=== PATIENT | male | born 1960 | race Caucasian/White ===

== ENCOUNTER 2019-04-21 07:04 | Observation (INO) | payer MEDICARE ==
[~2019-04-21] VITALS: Ht 170.2 cm; Wt 79.4 kg
--- NOTE | ~2019-04-21 | CN ---
PATIENT NAME:JOSE J TSE MEDICAL RECORD: [id number] : 62 LOCATION:. D.2137 ADMIT DATE: 04/21/19 ACCOUNT: [id number] CONSULTING PHYSICIAN: ALBARO BROWNE MD REFERRING PHYSICIAN: SHAVON GANDHI MD DATE OF CONSULTATION: 04/21/2019 CARDIOLOGY CONSULTATION DIAGNOSES: 1. Shortness of breath, dyspnea on exertion. 2. Congestive heart failure, chronic systolic dysfunction. 3. Cardiomyopathy, nonischemic. 4. Hypertension. 5. Hyperlipidemia. 6. ICD. HISTORY OF PRESENT ILLNESS: Mr. Tse presents with increasing shortness of breath, congestive heart failure symptomatology. It has been coming on for approximately 2 days. No chest pain or chest discomfort. He has a nonischemic cardiomyopathy followed by Dr. Hilario. He does have an ICD. He has had no dysrhythmias or ICD discharge. He denies any medical noncompliance. He is on Demadex 10 mg a day, Aldactone 25 mg a day, as well as Coreg, lisinopril, Lipitor. PHYSICAL EXAMINATION: CONSTITUTIONAL/GENERAL APPEARANCE: Well nourished, well developed, appears stated age. EYES: Lids and conjunctivae noninjected. No discharge. No pallor. ENT: Lips within normal limit. No cyanosis. No pallor. NECK: Carotid arteries, bilateral normal upstroke. No bruits. No thrills. No jugular venous pressure or distention. CERVICAL LYMPH NODES: Nontender. Nonenlarged. THYROID: Not enlarged. No nodules. CARDIOVASCULAR: Precordial exam, nondisplaced. No heaves or pericardial thrills. Rate and rhythm, regular. Heart sounds, normal S1, normal S2. No S3, no gallop, no rub. Systolic murmur, not heard. Diastolic murmur, not heard. RESPIRATORY: Respiratory effort, unlabored. Normal curvature. No thoracic deformity. No chest wall tenderness. Percussion, resonant. Auscultation, clear. No wheezes, no rales, no rhonchi. ABDOMEN: Soft, nondistended, nontender. No abdominal pain, no vomiting and normal appetite. MUSCULOSKELETAL: No joint tenderness, normal gait, normal tone. SKIN: Warm and dry. OVERALL IMPRESSION: Mild congestive heart failure. He has minimal pulmonary edema. This should clear with 1-2 doses of IV Lasix and he should be able to be discharged home in the a.m. TRANSINT:[id number] Voice Confirmation ID: [id number] DOCUMENT ID: [id number] CONSULT REPORT [id number] JOSE J TSE JEFFREY MD CC: [id number] DICTATION DATE: 04/21/19 1059 DEMOLITIONIST: 04/21/19 1301 ADM IN [facility] [address] [place] [address]
--- NOTE | ~2019-04-21 | EC ---
PATIENT:JOSE J FRANKS DATE OF SERVICE: 04/21/19 SEX: M MEDICAL RECORD: [id number] DATE OF : 62 LOCATION:D.M2 D.213 AGE OF PATIENT: 59 ADMISSION DATE: 04/21/19 REFERRING PHYSICIAN: INTERPRETING PHYSICIAN: ALBARO MEDINA MD ECHOCARDIOGRAM REPORT ECHO CHARGES 4 ECHO COMPLETE Date: 04/21/19 CLINICAL DIAGNOSIS: CHF ECHOCARDIOGRAPHIC MEASUREMENTS (adult normal given) AC root (d.<3.7cm) 3.2 cm LV Septum d (<1.2 cm> 1.0 cm Valve Excursion 1.2 cm LV Septum (systole) 1.1 cm Left Atria (s.<4.0cm> 3.9 cm LVPW d(<1.2cm) 0.7 cm RV (d.<2.3cm) 3.5 cm LVPW (sytole) 1.1 cm LV diastole(<5.6CM) 7.2 cm MV E-F(>70mm/sec) cm LV systole 6.5 cm LVOT Diameter 2.0 cm MV exc.(>10mm) cm Est.ejection fraction (50-75%) % DOPPLER: LVIT cm/sec A 27 cm/sec E 63 cm/sec LA cm/sec RVSP 39.0 mmHg LVOT 74 cm/sec AOP1/2T m/s Asc. Ao 127 cm/sec RVOT 51 cm/sec RA cm/sec PA 64 cm/sec AV Gradient Peak 6.4 mmHg AV Mean 3.4 mmHg AV Area 2.1 cm MV Gradient Peak 3.9 mmHg MV Mean 2.1 mmHg MV Area cm COMMENTS: Industrial Maintenance Repairer: Sundar [facility] Tire Man: 1 Dr. Medina TAPE# PACS Pericardial Effusion Y DATE OF SERVICE: ECHOCARDIOGRAM FINDINGS: 1. Left ventricular chamber size is moderately dilated. Left ventricular systolic function is moderately reduced at 30%. 2. Left atrium is within normal limits. Right atrium and right ventricular chamber sizes are moderately dilated. 3. Valvular structure have normal structure and motion. ECHOCARDIOGRAM REPORT [id number] JOSE J FRANKS 4. Doppler interrogation reveals mild mitral regurgitation, mild tricuspid regurgitation, no other valvular insufficiency or stenosis. Pulmonary systolic pressure is estimated at 39 mmHg. 5. No evidence of pericardial effusion or left ventricular thrombus. TRANSINT:[id number] Voice Confirmation ID: [id number] DOCUMENT ID: [id number] ALBARO MEDINA MD CC: [id number] DICTATION DATE: 04/22/19 1105 HAND TOUCH UP PAINTER: 04/22/19 1309 ADM IN [place] [id number] [place] [id number]
[2019-04-21] MEDS ORDERED: LIPITOR20 MG PO (07:12)
[2019-04-21] MEDS ORDERED: ASPIRIN325 MG PO (07:12)
[2019-04-21] MEDS ORDERED: KLOR-CON M2020 MEQ PO (07:13)
[2019-04-21] MEDS ORDERED: TRICOR145 MG PO (07:13)
[2019-04-21] MEDS ORDERED: COREG12.5 MG PO (07:13)
[2019-04-21] MEDS ORDERED: LISINOPRIL10 MG PO (07:13)
[2019-04-21] MEDS ORDERED: ALDACTONE25 MG PO (07:14)
[2019-04-21] MEDS ORDERED: TORSEMIDE10 MG PO (07:14)
[2019-04-21 07:42] LABS: BASOPHILS 0.1 % (0-2); EOSINOPHILS 1.4 % (0-7); HEMATOCRIT 39.5 % (42.0-54.0); HEMOGLOBIN 12.8 g/dL (13.5-17.5); IMMATURE GRANULOCYTES 0.1 % (0-5); LYMPHOCYTES 32.5 % (15-50); MCH 31.8 pg (26.0-34.0); MCHC 32.4 g/dL (31.0-37.0); MCV 98.3 fL (80.0-100.0); MEAN PLATELET VOLUME 10.7 fL (7.4-10.4); MONOCYTES 13.2 % (2-11); NEUTROPHILS 52.7 % (40-80); PLATELET COUNT 161 10x3/uL (130-400); RBC 4.02 10x6/uL (4.20-6.10); RDW 14.8 % (11.5-14.5); WBC 7.1 10x3/uL (4.8-10.8)
[2019-04-21 07:52] LABS: CALC OSMOLALITY 282 mosm/kg (275-300); CALCIUM 8.8 mg/dL (8.5-10.1); CARBON DIOXIDE 29.1 mmol/L (21.0-32.0); CHLORIDE - SERUM 104 mmol/L (98-107); CREATININE - SERUM 1.2 mg/dL (0.6-1.3); GLUCOSE 96 mg/dL (74-106); POTASSIUM - SERUM 4.5 mmol/L (3.5-5.1); SODIUM 140 mmol/L (136-145); UREA NITROGEN 24 mg/dL (7-18); eGFR NON AFRICAN AMERICAN 66 mL/min (90-120)
[2019-04-21 08:10] LABS: ALBUMIN 3.4 g/dL (3.4-5.0); ALKALINE PHOSPHATASE 36 U/L (46-116); ALT (SGPT) 47 U/L (10-68); AMYLASE - SERUM 45 U/L (25-115); CKMB 3.1 U/L (0.0-3.6); CREATINE KINASE 230 UL (21-232); LIPASE 235 U/L (73-393); PRO BNP 5687 pg/mL (0-125); PROTEIN - SERUM 6.4 g/dL (6.4-8.2); TROPONIN-I 0.019 ng/mL (0.000-0.060)
[2019-04-21 08:43] LABS: APPEARANCE CLEAR (CLEAR); BACTERIA FEW /hpf (NEGATIVE); BILIRUBIN NEGATIVE (NEGATIVE); COLOR YELLOW (YELLOW); EPITHELIAL CELLS RARE /hpf (0-5); GLUCOSE NEGATIVE (NEGATIVE); KETONE NEGATIVE (NEGATIVE); MUCUS <1+ /lpf (NONE SEEN); NITRITE NEGATIVE (NEGATIVE); PROTEIN 1+ mg/dL (NEGATIVE); RED CELLS - URINE NONE SEEN /hpf (0-5); WHITE CELLS - URINE NSEEN /hpf (NEGATIVE)
--- NOTE | 2019-04-21 12:11 | NUR ---
RECEIVED PT FROM ER. PT IS AAO AND UP AD ABHINAV. RR EVEN AND UNLABORED ON RA. L.FOR AND R.AC PIV'S ARE SALINE LOCKED. QUICKSTART, MED REQ, AND HISTORY COMPLETE. TELEMTRY APPLIED. PT DENIES ANY NEEDS AT THIS TIME. NO S/S OF DISTRESS NOTED. WILL CTM.
[2019-04-21 12:31] VITALS: BP 103/68; BMI 27.4
[2019-04-21 13:49] LABS: % SATURATION 10 % (15-55); IRON 38 ug/dl (35-150); TOTAL IRON BIND CAPACITY 368 ug/dl (260-445); UNSAT IRON BIND CAPACITY 330 ug/dl (150-375)
[2019-04-21 17:02] VITALS: BP 95/59
[2019-04-21 17:06] LABS: UDS - AMPHET NEGATIVE QUAL (NEGATIVE); UDS - BARB NEGATIVE QUAL (NEGATIVE); UDS - BENZO NEGATIVE QUAL (NEGATIVE); UDS - COCAINE NEGATIVE QUAL (NEGATIVE); UDS - OPIATE NEGATIVE QUAL (NEGATIVE); UDS - PCP NEGATIVE QUAL (NEGATIVE); UDS - THC NEGATIVE QUAL (NEGATIVE)
--- NOTE | 2019-04-21 19:48 | NUR ---
REPORT RECEIVED, WILL CONTINUE POC. PATIENT IS AAOX4, UP AD ABHINAV, SITTING ON SIDE OF BED. NO S/S OF DISTRESS OBSERVED, RR EVEN AND UNLABORED ON ROOM AIR. FRESH ICE WATER AND SHERBERT ICE CREAM GIVEN. PIVS TO LT FA AND RT AC, BOTH PATENT, SL, DRSGS C/D/I. PATIENT DENIES FURTHER NEEDS AT THIS TIME. CL IN REACH, BED LOCKED AND LOWERED. WILL CTM.
[2019-04-21 20:33] VITALS: BP 93/55
[2019-04-22 00:57] VITALS: BP 95/54
[2019-04-22 04:28] VITALS: BP 97/67
[2019-04-22 07:15] LABS: ALBUMIN 3.7 g/dL (3.4-5.0); ANION GAP 11.9 mmol/L (8-16); BILIRUBIN - TOTAL 1.17 mg/dL (0.2-1.3); CALCIUM 9.8 mg/dL (8.5-10.1); CARBON DIOXIDE 30.7 mmol/L (21.0-32.0); CREATININE - SERUM 1.2 mg/dL (0.6-1.3); POTASSIUM - SERUM 3.6 mmol/L (3.5-5.1); PROTEIN - SERUM 7.7 g/dL (6.4-8.2)
[2019-04-22 07:21] LABS: BASOPHILS 0.1 % (0-2); EOSINOPHILS 2.7 % (0-7); HEMATOCRIT 43.8 % (42.0-54.0); HEMOGLOBIN 14.4 g/dL (13.5-17.5); IMMATURE GRANULOCYTES 0.3 % (0-5); LYMPHOCYTES 26.1 % (15-50); MCH 32.1 pg (26.0-34.0); MCHC 32.9 g/dL (31.0-37.0); MCV 97.6 fL (80.0-100.0); MEAN PLATELET VOLUME 11.4 fL (7.4-10.4); MONOCYTES 13.5 % (2-11); NEUTROPHILS 57.3 % (40-80); RBC 4.49 10x6/uL (4.20-6.10); RDW 14.9 % (11.5-14.5); WBC 7.7 10x3/uL (4.8-10.8)
[2019-04-22 07:23] LABS: PLATELET COUNT 198 10x3/uL (130-400)
--- NOTE | 2019-04-22 07:40 | NUR ---
REPORT RECIEVED. PT SITTING UP IN BED. RR EVEN AND UNLABORED. NO DISTRESS NOTED. PT HAS A L FA PIV THAT IS SL AND A R AC PIV THAT IS SL. BED LOCKED AND IN LOWEST POSITION, CALL LIGHT WITHIN REACH. WILL CTM
[2019-04-22 08:56] VITALS: BP 102/69
--- NOTE | 2019-04-22 11:45 | NUR ---
GREYSON NOTIFIED ABOUT BP OF 85/46. WILL CTM
[2019-04-22 12:20] VITALS: BP 85/46
[2019-04-22 14:20] VITALS: Ht 170.2 cm; Wt 79.4 kg
--- NOTE | 2019-04-22 14:33 | NUR ---
DC PAPERWORK GONE OVER AND SIGNED WITH PT. ALL QUESTIONS ANSWERED. PIV REMOVED, CATH TIP FULLY INTACT X2. TELEMETRY REMOVED AND RETURNED TO [employer] SUPERVISOR. ALL VALUBLES REMOVED FROM ROOM. PT TAKIN VIA WHEELCHAIR TO VEHICLE.
--- NOTE | 2019-04-22 14:39 | NUR ---
I have reviewed this patient and I concur with the Shift Assessment completed by the Licensed Practical Nurse today this shift.
--- NOTE | 2019-04-24 10:09 | MORECARE ---
CASE MANAGEMENT DISCHARGE SUMMARY PATIENT: JOSE J FRANKS UNIT: [id number] ADM DATE: 04/21/19 AGE: 59 : 62 SEX: M ROOM/BED: D.2137 AUTHOR: JO ANN VELÁSQUEZ PHYSICIAN: REFERRING PHYSICIAN: SHAVON GANDHI MD DATE OF SERVICE: 04/24/19 Discharge Plan Patient Name: JOSE J FRANKS [facility] [facility] 1960 Planned Disposition: Home Anticipated Discharge Date: 04/22/19 Discharge Date: 04/22/2019 Expected LOS: 1 Initial Reviewer: [email or web address] Initial Review Date: 04/24/2019 Generated: 04/24/19 11:09 am Coverage Notice Reviewer: [email or web address] Simin Connor Notice Issued Date-Time: 04/22/2019 14:01 Notice Type: Medicare Outpatient Observation Notice Notice Delivered To: Patient Relationship to Patient: Die Cast Operator Name: Delivery Method: HAND - Hand Delivered Mirna Days: Prior Verbal Notification: Recipient Understood Notice: Recipient Signature: Med Rec Note Co-signed by Attending: Coverage Notice Comment: Patient Name: JOSE J FRANKS Page [phone] at 1009 All edits/amendments must be made on the electronic document DICTATION DATE: 04/24/19 1009 WEALTH MANAGEMENT MANAGER: GIUSEPPE 04/24/19 1009 RPT#: [id number] DC DATE:04/22/19 STATUS: DIS IN [facility] [address] [place] [address] END OF REPORT
== END 2019-04-22 14:44 | disposition home or self-care (01) ==
LOC: D.ER 07:04 → D.M2 10:49 → D.ER 10:49 → OBSVTIME 10:49 → D.M2 04-22 14:44
PROVIDERS: Family Medicine; ADMIT Internal Medicine Nephrology; ATTEND Internal Medicine Nephrology
DX: I11.0 Hypertensive heart disease with heart failure (principal); I50.23 Acute on chronic systolic (congestive) heart failure; I42.8 Other cardiomyopathies; D64.9 Anemia, unspecified; E78.5 Hyperlipidemia, unspecified; N17.9 Acute kidney failure, unspecified; I71.2 Thoracic aortic aneurysm, without rupture

== ENCOUNTER 2019-09-01 09:35 | Observation (INO) | payer MEDICARE ==
[~2019-09-01] VITALS: Ht 170.2 cm; Wt 78.2 kg
[~2019-09-01 09:35] MED LIST: ALDACTONE25 MG PO; ASPIRIN325 MG PO; COREG12.5 MG PO; KLOR-CON M2020 MEQ PO; LIPITOR20 MG PO; LISINOPRIL10 MG PO; TORSEMIDE10 MG PO; TRICOR145 MG PO
[2019-09-01] MEDS ORDERED: PRAVACHOL20 MG PO (09:50)
[2019-09-01] MEDS ORDERED: SYMBICORT 80-10.2 GM INH (09:50)
[2019-09-01 09:54] LABS: BASOPHILS 0.2 % (0-2); HEMATOCRIT 40.7 % (42.0-54.0); HEMOGLOBIN 13.2 g/dL (13.5-17.5); LYMPHOCYTES 27.2 % (15-50); MCH 31.2 pg (26.0-34.0); MCHC 32.4 g/dL (31.0-37.0); MCV 96.2 fL (80.0-100.0); MEAN PLATELET VOLUME 10.2 fL (7.4-10.4); MONOCYTES 12.1 % (2-11); NEUTROPHILS 56.5 % (40-80); RBC 4.23 10x6/uL (4.20-6.10); RDW 14.4 % (11.5-14.5); WBC 6.4 10x3/uL (4.8-10.8)
[2019-09-01 10:08] LABS: CALC OSMOLALITY 277 mosm/kg (275-300); CALCIUM 9.5 mg/dL (8.5-10.1); CARBON DIOXIDE 26.3 mmol/L (21.0-32.0); CHLORIDE - SERUM 100 mmol/L (98-107); CREATININE - SERUM 1.5 mg/dL (0.6-1.3); GLUCOSE 104 mg/dL (74-106); POTASSIUM - SERUM 4.7 mmol/L (3.5-5.1); SODIUM 135 mmol/L (136-145); UREA NITROGEN 36 mg/dL (7-18); eGFR NON AFRICAN AMERICAN 51 mL/min (90-120)
[2019-09-01 10:12] LABS: PLATELET COUNT 133 10x3/uL (130-400)
[2019-09-01 10:18] LABS: APTT 26.3 SECONDS (22.8-39.4); INR 0.98 (0.85-1.17)
[2019-09-01 10:23] LABS: ALKALINE PHOSPHATASE 39 U/L (30-120); ALT (SGPT) 27 U/L (10-68); BILIRUBIN - TOTAL 0.97 mg/dL (0.2-1.3); CKMB 2.3 U/L (0.0-3.6); CREATINE KINASE 179 UL (21-232); MAGNESIUM - SERUM 2.3 mg/dL (1.8-2.4); PROTEIN - SERUM 7.3 g/dL (6.4-8.2); TROPONIN-I < 0.017 ng/mL (0.000-0.060)
[2019-09-01 10:40] VITALS: BP 103/59
[2019-09-01 12:37] VITALS: BP 106/61; BMI 27.0
[2019-09-01 13:25] VITALS: BP 103/68; BP 103/78
[2019-09-01 13:51] VITALS: Ht 170.2 cm; Wt 78.2 kg
[2019-09-01 16:27] LABS: CKMB 2.7 U/L (0.0-3.6); CREATINE KINASE 152 UL (21-232)
[2019-09-01 16:32] LABS: TROPONIN-I < 0.017 ng/mL (0.000-0.060)
[2019-09-01 21:12] VITALS: BP 96/61
[2019-09-01 22:00] LABS: CKMB 1.8 U/L (0.0-3.6); CREATINE KINASE 140 UL (21-232); TROPONIN-I < 0.017 ng/mL (0.000-0.060)
[2019-09-01 23:58] VITALS: BP 97/55
[2019-09-02 04:29] LABS: ALBUMIN 3.9 g/dL (3.4-5.0); ALKALINE PHOSPHATASE 38 U/L (30-120); ALT (SGPT) 23 U/L (10-68); BILIRUBIN - TOTAL 0.86 mg/dL (0.2-1.3); CALC OSMOLALITY 279 mosm/kg (275-300); CALCIUM 8.8 mg/dL (8.5-10.1); CARBON DIOXIDE 26.1 mmol/L (21.0-32.0); CHLORIDE - SERUM 101 mmol/L (98-107); CKMB 1.8 U/L (0.0-3.6); CREATINE KINASE 119 UL (21-232); CREATININE - SERUM 1.3 mg/dL (0.6-1.3); GLUCOSE 97 mg/dL (74-106); MAGNESIUM - SERUM 2.3 mg/dL (1.8-2.4); PROTEIN - SERUM 7.4 g/dL (6.4-8.2); SODIUM 136 mmol/L (136-145); TROPONIN-I < 0.017 ng/mL (0.000-0.060); UREA NITROGEN 34 mg/dL (7-18); eGFR NON AFRICAN AMERICAN 60 mL/min (90-120)
[2019-09-02 04:32] LABS: BASOPHILS 0.1 % (0-2); EOSINOPHILS 4.2 % (0-7); HEMOGLOBIN 13.4 g/dL (13.5-17.5); IMMATURE GRANULOCYTES 0.1 % (0-5); LYMPHOCYTES 22.1 % (15-50); MCH 31.5 pg (26.0-34.0); MCHC 32.7 g/dL (31.0-37.0); MCV 96.5 fL (80.0-100.0); MEAN PLATELET VOLUME 10.6 fL (7.4-10.4); MONOCYTES 10.8 % (2-11); NEUTROPHILS 62.7 % (40-80); PLATELET COUNT 141 10x3/uL (130-400); RBC 4.25 10x6/uL (4.20-6.10); RDW 14.5 % (11.5-14.5); WBC 7.8 10x3/uL (4.8-10.8)
[2019-09-02 05:17] VITALS: BP 97/66
[2019-09-02 09:27] VITALS: BP 102/65
--- NOTE | 2019-09-02 11:00 | NUR ---
PT BEGGING TO BE DISCHARGED AND STATES HE IS FEELING COMPLETELY BETTER. DISCUSSED WITH CARDIOLOGY AND PT WILL STILL NEED AN ECHO AND THEN MAY DISCHARGE AND F/U IN CLINIC IN 2 WEEKS. PT VERY HAPPY TO HEAR THIS. WILL DISCUSS WITH PRIMARY AND BEGIN DISCHARGE WORKUP.
--- NOTE | 2019-09-02 13:29 | NUR ---
D/C PTS L.HAND PIV WITH CATHETER TIP FULLY INTACT. PT STATES HIS RIDE IS ALREADY HERE AND HE IS READY TO LEAVE. WAITING ON DISCHARGE PAPERS. WILL CONTINUE WITH DISCHARGE WORKUP.
--- NOTE | 2019-09-03 07:23 | MORECARE ---
CASE MANAGEMENT DISCHARGE SUMMARY PATIENT: PALMER TSE UNIT: [id number] ADM DATE: 09/01/19 AGE: 59 : 62 SEX: M ROOM/BED: D.2118 AUTHOR: JO ANN VELÁSQUEZ PHYSICIAN: REFERRING PHYSICIAN: ASYA HOUSE DO DATE OF SERVICE: 09/03/19 Discharge Plan Patient Name: PALMER TSE [facility] [facility] 1960 Planned Disposition: Anticipated Discharge Date: Discharge Date: 09/02/2019 Expected LOS: 0 Initial Reviewer: [email or web address] Initial Review Date: 09/03/2019 Generated: 09/03/19 8:23 am Coverage Notice Reviewer: [email or web address] Simin Tyler Notice Issued Date-Time: 09/01/2019 17:54 Notice Type: Medicare Outpatient Observation Notice Notice Delivered To: Patient Relationship to Patient: Self Servicer Name: Palmer Tse Delivery Method: HAND - Hand Delivered Mirna Days: Prior Verbal Notification: Recipient Understood Notice: Recipient Signature: Yes Med Rec Note Co-signed by Attending: Coverage Notice Comment: LIPSCOMB signed by patient, patient refuses his copy. Original placed on the chart. Patient Name: PALMER TSE Page [phone] at 0723 All edits/amendments must be made on the electronic document DICTATION DATE: 09/03/19722 [place] OPERATOR: GIUSEPPE 09/03/19722 RPT#: [id number] DC DATE:09/02/19 STATUS: DIS IN [facility] [address] [place] [address] END OF REPORT
== END 2019-09-02 14:19 | disposition home or self-care (01) ==
LOC: D.ER 09:35 → OBSVTIME 10:34 → D.M2 10:34
PROVIDERS: Family Medicine; ADMIT Family Medicine; ATTEND Family Medicine
DX: I11.0 Hypertensive heart disease with heart failure (principal); I50.23 Acute on chronic systolic (congestive) heart failure; I42.8 Other cardiomyopathies; D64.9 Anemia, unspecified; N17.9 Acute kidney failure, unspecified; E78.5 Hyperlipidemia, unspecified; E87.1 Hypo-osmolality and hyponatremia; I20.0 Unstable angina

== ENCOUNTER 2019-09-03 15:19 | Observation (INO) | payer MEDICARE ==
[~2019-09-03] VITALS: Ht 170.2 cm; Wt 81.8 kg
[~2019-09-03 15:19] MED LIST changes: +PRAVACHOL20 MG PO; +SYMBICORT 80-10.2 GM INH
[2019-09-03 15:37] VITALS: Ht 170.2 cm; Wt 81.8 kg
[2019-09-03 16:13] LABS: BASOPHILS 0.1 % (0-2); EOSINOPHILS 3.9 % (0-7); HEMATOCRIT 39.8 % (42.0-54.0); IMMATURE GRANULOCYTES 0.3 % (0-5); LYMPHOCYTES 20.1 % (15-50); MCH 31.6 pg (26.0-34.0); MCHC 32.7 g/dL (31.0-37.0); MCV 96.8 fL (80.0-100.0); MEAN PLATELET VOLUME 10.1 fL (7.4-10.4); MONOCYTES 12.4 % (2-11); NEUTROPHILS 63.2 % (40-80); PLATELET COUNT 133 10x3/uL (130-400); RBC 4.11 10x6/uL (4.20-6.10); RDW 14.5 % (11.5-14.5); WBC 7.4 10x3/uL (4.8-10.8)
[2019-09-03 16:26] LABS: APTT 26.9 SECONDS (22.8-39.4); INR 1.03 (0.85-1.17); PROTIME 13.4 SECONDS (11.6-15.0)
[2019-09-03 16:27] LABS: D-DIMER-QUANTITATIVE 0.44 ug/mLFEU (0.20-0.54)
[2019-09-03 16:43] LABS: ANION GAP 15.2 mmol/L (8-16); CALCIUM 8.3 mg/dL (8.5-10.1); CARBON DIOXIDE 23.7 mmol/L (21.0-32.0)
[2019-09-03 16:48] LABS: ALBUMIN 3.9 g/dL (3.4-5.0); BILIRUBIN - TOTAL 0.97 mg/dL (0.2-1.3); CREATININE - SERUM 1.9 mg/dL (0.6-1.3); POTASSIUM - SERUM 4.9 mmol/L (3.5-5.1); PROTEIN - SERUM 7.2 g/dL (6.4-8.2)
[2019-09-03 18:23] LABS: ANION GAP 13.6 mmol/L (8-16); CALCIUM 8.5 mg/dL (8.5-10.1); CARBON DIOXIDE 24.2 mmol/L (21.0-32.0); CREATININE - SERUM 1.8 mg/dL (0.6-1.3); POTASSIUM - SERUM 4.8 mmol/L (3.5-5.1)
[2019-09-03 20:01] VITALS: BP 117/81
--- NOTE | 2019-09-03 20:25 | NUR ---
PT FROM ER VIA WHEELCHAIR, PT AMBULATED TO BED, NO DISTRESS NOTED, NO CONCERNS OR WANTS NOTED, CL IN REACH, SR UP X 2.
[2019-09-04] VITALS: BP 114/66
[2019-09-04 04:00] VITALS: BP 106/54
[2019-09-04 05:04] LABS: BASOPHILS 0 % (0-2); EOSINOPHILS 0 % (0-7); HEMATOCRIT 38.7 % (42.0-54.0); HEMOGLOBIN 12.4 g/dL (13.5-17.5); IMMATURE GRANULOCYTES 0.2 % (0-5); LYMPHOCYTES 8.5 % (15-50); MCH 31.1 pg (26.0-34.0); MEAN PLATELET VOLUME 10.4 fL (7.4-10.4); MONOCYTES 1.1 % (2-11); NEUTROPHILS 90.2 % (40-80); PLATELET COUNT 132 10x3/uL (130-400); RBC 3.99 10x6/uL (4.20-6.10); RDW 14.4 % (11.5-14.5); WBC 5.7 10x3/uL (4.8-10.8)
[2019-09-04 05:34] LABS: CALCIUM 8.7 mg/dL (8.5-10.1); CARBON DIOXIDE 21.8 mmol/L (21.0-32.0); CHLORIDE - SERUM 102 mmol/L (98-107); CKMB 2.4 U/L (0.0-3.6); CREATINE KINASE 146 UL (21-232); CREATININE - SERUM 1.8 mg/dL (0.6-1.3); MAGNESIUM - SERUM 2.4 mg/dL (1.8-2.4); POTASSIUM - SERUM 4.6 mmol/L (3.5-5.1); SODIUM 137 mmol/L (136-145); UREA NITROGEN 48 mg/dL (7-18); eGFR NON AFRICAN AMERICAN 41 mL/min (90-120)
[2019-09-04 05:36] LABS: CALC OSMOLALITY 292 mosm/kg (275-300); GLUCOSE 208 mg/dL (74-106); TROPONIN-I < 0.017 ng/mL (0.000-0.060)
[2019-09-04 10:56] VITALS: BP 109/53
[2019-09-04] MEDS ORDERED: MEDROL DOSE PACK4 MG PO (12:09)
[2019-09-04] MEDS ORDERED: ULTRAM50 MG PO (12:09)
--- NOTE | 2019-09-04 12:53 | NUR ---
LEFT HAND 20G IV DC'D WITH CATH INTACT. DISCHARGE INSTRUCTIONS AND TRAMADOL WRITTEN SCRIPT GIVEN TO PT. PT HAS NO FURTHER QUESTIONS. CHART COPY SIGNED. PT CALLED TO COME PICK HIM UP.
--- NOTE | 2019-09-04 13:25 | NUR ---
PT TAKEN OUT VIA WC THROUGH ER ENTRANCE WITH ALL OF BELONGINGS AND LEFT WITH SPOUSE IN PERSONAL CAR.
--- NOTE | 2019-09-04 16:25 | MORECARE ---
CASE MANAGEMENT DISCHARGE SUMMARY PATIENT: JOSE J FRANKS UNIT: [id number] ADM DATE: 09/03/19 AGE: 59 : 62 SEX: M ROOM/BED: D.2100 AUTHOR: JO ANN VELÁSQUEZ PHYSICIAN: REFERRING PHYSICIAN: ASYA HOUSE DO DATE OF SERVICE: 09/04/19 Discharge Plan Patient Name: JOSE J FRANKS [facility] : 1960 Planned Disposition: Anticipated Discharge Date: Discharge Date: 09/04/2019 Expected LOS: 0 Initial Reviewer: [email or web address] Initial Review Date: 09/04/2019 Generated: 09/04/19 5:25 pm Patient Name: JOSE J FRANKS Page [phone] at 1625 All edits/amendments must be made on the electronic document DICTATION DATE: 09/04/191624 POWDER NIPPER: GIUSEPPE 09/04/19 1625 RPT#: [id number] DC DATE:09/04/19 STATUS: DIS IN [facility] [address] [place] [address] END OF REPORT
== END 2019-09-04 13:25 | disposition home or self-care (01) ==
LOC: D.ER 15:19 → OBSVTIME 18:52 → D.M2 18:52
PROVIDERS: Emergency Medicine; ADMIT Family Medicine; ATTEND Family Medicine
DX: M94.0 Chondrocostal junction syndrome [Tietze] (principal); R07.89 Other chest pain; D64.9 Anemia, unspecified; N17.9 Acute kidney failure, unspecified; E78.5 Hyperlipidemia, unspecified; I11.0 Hypertensive heart disease with heart failure; I50.30 Unspecified diastolic (congestive) heart failure; I71.4 Abdominal aortic aneurysm, without rupture

== ENCOUNTER 2020-07-10 12:08 | Inpatient (IN) | payer MEDICARE ==
[2020-07-10] VITALS (46 sets, daily range): BP systolic 66–121; BP diastolic 35–89; BMI 34.7
[~2020-07-10] VITALS: Ht 170.2 cm; Wt 89.3 kg
[~2020-07-10 12:08] MED LIST changes: +MEDROL DOSE PACK4 MG PO; +OMNICEF300 MG PO; +ULTRAM50 MG PO; +ZPAK PO
[2020-07-10 13:04] LABS: APTT 29.4 SECONDS (22.8-39.4); INR 1.29 (0.85-1.17); PROTIME 14.9 SECONDS (11.6-15.0)
[2020-07-10 13:12] LABS: CALC OSMOLALITY 306 mosm/kg (275-300); CALCIUM 8.7 mg/dL (8.5-10.1); CARBON DIOXIDE 28.9 mmol/L (21.0-32.0); CHLORIDE - SERUM 104 mmol/L (98-107); CREATININE - SERUM 3.3 mg/dL (0.6-1.3); GLUCOSE 125 mg/dL (74-106); POTASSIUM - SERUM 5.7 mmol/L (3.5-5.1); SODIUM 140 mmol/L (136-145); UREA NITROGEN 89 mg/dL (7-18); eGFR NON AFRICAN AMERICAN 20 mL/min (90-120)
[2020-07-10 13:18] LABS: ALBUMIN 3.3 g/dL (3.4-5.0); ALKALINE PHOSPHATASE 29 U/L (30-120); ALT (SGPT) 24 U/L (10-68); AMYLASE - SERUM 51 U/L (25-115); BILIRUBIN - TOTAL 1.27 mg/dL (0.2-1.3); CKMB 3.8 U/L (0.0-3.6); CREATINE KINASE 294 UL (21-232); LIPASE 173 U/L (73-393); MAGNESIUM - SERUM 2.8 mg/dL (1.8-2.4); PROTEIN - SERUM 6.7 g/dL (6.4-8.2); TROPONIN-I 0.017 ng/mL (0.000-0.060)
[2020-07-10 13:49] LABS: BASOPHILS 0.4 % (0-2); EOSINOPHILS 3.4 % (0-7); HEMATOCRIT 39.8 % (42.0-54.0); HEMOGLOBIN 12.7 g/dL (13.5-17.5); IMMATURE GRANULOCYTES 0.2 % (0-5); LYMPHOCYTE ABS# 1.08 10x3/uL (1.32-3.57); LYMPHOCYTES 19.5 % (15-50); MCH 31.4 pg (26.0-34.0); MCHC 31.9 g/dL (31.0-37.0); MCV 98.5 fL (80.0-100.0); MONOCYTES 14.1 % (2-11); NEUTROPHIL ABS# 3.47 10x3/uL (1.78-5.38); NEUTROPHILS 62.4 % (40-80); RBC 4.04 10x6/uL (4.20-6.10); RDW 16.2 % (11.5-14.5); WBC 5.6 10x3/uL (4.8-10.8)
[2020-07-10 13:50] LABS: PLATELET COUNT 83 10x3/uL (130-400)
--- NOTE | 2020-07-10 13:51 | NUR ---
PATIENT TAKEN TO CT.
[2020-07-10 14:26] LABS: PLATELET ESTIMATE DECREASED
--- NOTE | 2020-07-10 14:37 | NUR ---
DOBUTAMINE INCREASED FROM 5MCG/KG/MIN TO 7.5 MCG/KG/MIN.
--- NOTE | 2020-07-10 14:40 | NUR ---
DOBUTAMINE INCREASED FROM 5MCG/KG/MIN TO 7.5MCG/KG/MIN.
--- NOTE | 2020-07-10 14:42 | NUR ---
DOBUTAMINE DECREASED FROM 7.5MCG/KG/MIN TO 6MCG/KG/MIN.
--- NOTE | 2020-07-10 14:43 | NUR ---
PATIENT SITTING UP ON SIDE OF BED, NAD, ALERT AND ORIENTED X 4.
--- NOTE | 2020-07-10 14:59 | NUR ---
DOBUTAMINE INCREASED FROM 6MCG/KG/MIN TO 7.5MCG/KG/MIN.
--- NOTE | 2020-07-10 15:03 | NUR ---
ATTEMPTED REPORT AT THIS TIME. NURSE UNABLE TO TAKE AND WILL CALL BACK IN 10 MINUTES.
--- NOTE | 2020-07-10 15:22 | NUR ---
PATIENT NAUSEATED AND GAGGING, GIVEN X1 4MG ZOFRAN PER VERBAL ORDER OF DR LEAL, FSBS 72.
--- NOTE | 2020-07-10 15:24 | NUR ---
DOBUTAMINE INCREASED TO 10MCG/KG/MIN.
--- NOTE | 2020-07-10 15:56 | NUR ---
DOBUTAMINE INCREASED FROM 10MCG/KG/MIN TO 12.5MCG/KG/MIN.
--- NOTE | 2020-07-10 16:21 | NUR ---
DOBUTAMINE INCREASED TO 15MCG/KG/MIN.
--- NOTE | 2020-07-10 16:34 | NUR ---
REPORT CALLED TO CCU.
--- NOTE | 2020-07-10 17:05 | NUR ---
RECIEVED PT AT THIS TIME FROM ER VIA BED ACCOMPANIED BY HOSPITAL STAFF. PT ALERT AND ORIENTED, CALM, WALKED FROM ER BED TO ICU BED EASILY WITHOUT ASSIST. HE DENIES ANY CURRENT NEEDS OR CONCERNS. WILL CONTINUE TO CLOSELY OBSERVE.
[2020-07-10] MEDS ORDERED: ENTRESTO 24 MG1 EACH PO (17:08)
--- NOTE | 2020-07-10 18:12 | NUR ---
PER DR SHETH, TITRATE LEVOPHED TO KEEP MAP ABOVE 60. ALSO DOBUTAMINE AT 5 MCG/KG/MIN SET RATE.
--- NOTE | 2020-07-10 19:23 | NUR ---
PAGED ALBIN FOR CONSULT.
--- NOTE | 2020-07-10 19:24 | NUR ---
NOTIFIED DR. MARIN OF CONSULT. NO NEW ORDERS AT THIS TIME. WILL CONTINUE TO MONITOR
[2020-07-10 20:26] LABS: BILIRUBIN NEGATIVE (NEGATIVE); KETONE NEGATIVE (NEGATIVE); NITRITE NEGATIVE (NEGATIVE); UROBILINOGEN NORMAL mg/dL (< 2)
[2020-07-10 22:48] LABS: CREATININE - URINE 84.1 mg/dL (30-125); PRO/CRE RATIO URINE 0.1 mg/g; PROTEIN - URINE 11.5 mg/dL (0.0-11.9)
[2020-07-11] VITALS (51 sets, daily range): BP systolic 82–113; BP diastolic 51–89
[2020-07-11 05:37] LABS: BASOPHILS 0.2 % (0-2); HEMATOCRIT 38.9 % (42.0-54.0); HEMOGLOBIN 12.2 g/dL (13.5-17.5); IMMATURE GRANULOCYTES 0.2 % (0-5); LYMPHOCYTES 14.8 % (15-50); MCH 31.2 pg (26.0-34.0); MCHC 31.4 g/dL (31.0-37.0); MCV 99.5 fL (80.0-100.0); MEAN PLATELET VOLUME 11.9 fL (7.4-10.4); MONOCYTES 14.9 % (2-11); NEUTROPHIL ABS# 4.09 10x3/uL (1.78-5.38); NEUTROPHILS 66.9 % (40-80); PLATELET COUNT 87 10x3/uL (130-400); RBC 3.91 10x6/uL (4.20-6.10); RDW 16.3 % (11.5-14.5); WBC 6.1 10x3/uL (4.8-10.8)
[2020-07-11 05:53] LABS: ALBUMIN 3.4 g/dL (3.4-5.0); BILIRUBIN - TOTAL 1.47 mg/dL (0.2-1.3); CALCIUM 8.7 mg/dL (8.5-10.1); CARBON DIOXIDE 24.6 mmol/L (21.0-32.0); PLATELET ESTIMATE DECREASED; POTASSIUM - SERUM 5.6 mmol/L (3.5-5.1); PROTEIN - SERUM 6.9 g/dL (6.4-8.2)
--- NOTE | 2020-07-11 18:00 | NUR ---
PT ABLE TO TRANSFER SELF IN ROOM NEEDED, DENIES PAIN AND ALL NEEDS, CHG BATH DONE WITH ASSIST NEEDED
[2020-07-12] VITALS (29 sets, daily range): BP systolic 80–118; BP diastolic 49–84; Ht 170.2 cm; Wt 89.3 kg
[2020-07-12 04:34] LABS: BASOPHILS 0.2 % (0-2); EOSINOPHILS 3.2 % (0-7); HEMATOCRIT 39.4 % (42.0-54.0); HEMOGLOBIN 12.2 g/dL (13.5-17.5); IMMATURE GRANULOCYTES 0.2 % (0-5); LYMPHOCYTES 16.8 % (15-50); MCH 30.8 pg (26.0-34.0); MCV 99.5 fL (80.0-100.0); MONOCYTES 16.6 % (2-11); NEUTROPHIL ABS# 3.77 10x3/uL (1.78-5.38); PLATELET COUNT 95 10x3/uL (130-400); RBC 3.96 10x6/uL (4.20-6.10)
[2020-07-12 05:07] LABS: ANION GAP 9.9 mmol/L (8-16); CALCIUM 8.7 mg/dL (8.5-10.1); CARBON DIOXIDE 29.5 mmol/L (21.0-32.0); CREATININE - SERUM 3.1 mg/dL (0.6-1.3); PHOSPHOROUS 4.4 mg/dL (2.5-4.9); POTASSIUM - SERUM 5.4 mmol/L (3.5-5.1); THYROID STIMULATING HORMONE 1.68 uIU/mL (0.36-3.74); URIC ACID 11.2 mg/dL (2.6-7.2)
--- NOTE | 2020-07-12 07:00 | NUR ---
RECEIVED BEDSIDE REPORT ON PATIENT AND ASSUMED CARE. PATIENT SITTING UP ON SIDE OF BED, ALERT AND ORIENTED X 4, VSS. IV 20 GA TO BACK OF LEFT HAND, DIFFICULT TO INFUSE AND FLUSH, NEW IV 22 GA TO RIGHT FA X I ATTEMPT WITH POSITIVE BLOOD RETURN AND FLUSHES EASILY STARTED. BBS - CLEAR AND EQUAL, NONLABORED RESPIRATIONS, SPO2 98% ON RA. +2 PITTING EDEMA NOTED TO LOWER EXTREMITIES AND ABDOMEN TIGHT AND DISTENDED. STATES THIS STARTED APPROXIMATELY 1 WEEK AGO. HEAD TO TOE ASSESSMENT COMPLETED.
--- NOTE | 2020-07-12 08:49 | NUR ---
MORNING MEDS PER MAR, PATIENT ATE 100% OF BREAKFAST TRAY. NO NEEDS AT THIS TIME.
--- NOTE | 2020-07-12 14:30 | CN ---
PATIENT NAME:JOSE J FRANKS MEDICAL RECORD: [id number] : 62 LOCATION:[place].CV08 ADMIT DATE: 07/10/20 ACCOUNT: [id number] CONSULTING PHYSICIAN: ANNEL SENA MD REFERRING PHYSICIAN: TIFFANIE LEAL MD DATE OF CONSULTATION: 07/11/2020 HISTORY OF PRESENT ILLNESS: A 60-year-old gentleman with known cardiomyopathy with status post generator replacement approximately 4 months ago, typically followed by Dr. Pack, good combination of cardiomyopathic medications, has been with lower extremity edema, abdominal distention and shortness of breath. This has been going about 2 to 3 week. Denies any recent dietary indiscretion or medical noncompliance. We are asked to see him concerning cardiovascular status. Of note, creatinine is elevated at 3, potassium elevated as well. PAST MEDICAL HISTORY: Includes; 1. History of hypertension. 2. Hyperlipidemia. 3. Cardiomyopathy as described above. ALLERGIES: None known. MEDICATIONS: Include TriCor 145 every day, pravastatin 20 every day, Entresto 24/26 every day, Aldactone 25 every day, aspirin every day, potassium supplementation, Demadex 10 mg every day. SOCIAL HISTORY: Nonsmoker, social drinker. Typically, he is able to take care of all his ADLs. REVIEW OF SYSTEMS: The patient reports easy bruising but reports no swollen glands. The patient reports no fever, no night sweats, no significant weight gain, no significant weight loss. No significant exercise tolerance. The patient reports no dry eyes, no irritation, no vision change. Patient reports no difficulty hearing and no ear pain. Patient reports no frequent nose bleeds or nose and sinus problems. Patient reports on arm pain on exertion. No shortness of breath while lying down. No history of heart murmur. Patient reports no cough, no wheezing or coughing up blood. Patient reports no abdominal pain, no vomiting. Normal appetite. No diarrhea and not vomiting blood. No nausea and no constipation. Patient reports no incontinence. No difficulty urinating. No hematuria. No increased frequency. Patient reports no muscle aches. No weakness, no arthralgias, no back pain. No swelling of the extremities. Patient reports no abnormal mole, no jaundice, no rashes. Reports no loss of consciousness. No weakness and no numbness. No seizures, dizziness, or headaches. The patient reports no depression, no sleep disturbance, feeling safe in a relationship and no alcohol abuse. Patient reports on fatigue. Reports no runny nose or sinus pressure. No itching, no hives, and no frequent sneezing. PHYSICAL EXAMINATION: GENERAL: No acute distress, appears stated age. VITAL SIGNS: Blood pressure 102/70, pulse 63 and regular. HEENT: Normocephalic, atraumatic. NECK: No bruits noted. HEART: Regular. S3 gallop is noted. LUNGS: Actually fairly good air excursion. CONSULT REPORT [id number] FRANKS,JOSE J ABDOMEN: Soft, nontender. EXTREMITIES: Pulse are well preserved. There is no edema. IMPRESSION AND PLAN: Volume overload. Suspect renal component to this point. Stop potassium replacement therapy obviously. We will check echocardiographic study to get baseline ejection fraction. Further recommendations based on clinical course. TRANSINT:[id number] Voice Confirmation ID: [id number] DOCUMENT ID: [id number] ANNEL SENA MD at 1430 CC: [id number] DICTATION DATE: 07/11/20929 MANAGER OF TRAINING: 07/11/20 1244 ADM IN [facility] [address] [place] [address]
--- NOTE | 2020-07-12 14:30 | EC ---
PATIENT:JOSE J FRANKS DATE OF SERVICE: 07/10/20 SEX: M MEDICAL RECORD: [id number] DATE OF : 62 LOCATION:[place] [address] AGE OF PATIENT: 60 ADMISSION DATE: 07/10/20 REFERRING PHYSICIAN: INTERPRETING PHYSICIAN: ANNEL SENA MD ECHOCARDIOGRAM REPORT ECHO CHARGES 5 ECHO LIMITED Date: 07/11/20 CLINICAL DIAGNOSIS: CMP ECHOCARDIOGRAPHIC MEASUREMENTS (adult normal given) AC root (d.<3.7cm) 0 cm LV Septum d (<1.2 cm> 0 cm Valve Excursion cm LV Septum (systole) 0 cm Left Atria (s.<4.0cm> 0 cm LVPW d(<1.2cm) 0 cm RV (d.<2.3cm) 0 cm LVPW (sytole) cm LV diastole(<5.6CM) 0 cm MV E-F(>70mm/sec) 0 cm LV systole 0 cm LVOT Diameter cm MV exc.(>10mm) 0 cm Est.ejection fraction (50-75%) % DOPPLER: LVIT cm/sec A 0 cm/sec E 0 cm/sec LA 0 cm/sec RVSP 47 mmHg LVOT 0 cm/sec AOP1/2T m/s Asc. Ao 0 cm/sec RVOT 0 cm/sec RA cm/sec PA 0 cm/sec AV Gradient Peak 0 mmHg AV Mean 0 mmHg AV Area cm MV Gradient Peak 0 mmHg MV Mean 0 mmHg MV Area 0 cm COMMENTS: Wire Drawer: Sundar OYUNG Garment Form Assembler: 3 Dr. Rodriguez TAPE# Pericardial Effusion N DATE OF SERVICE: Adequate 2D, color-flow imaging, spectral Doppler, and M-Mode. FINDINGS: LVH is present. LV internal dimensions appeared dilated. LV is globally hypokinetic. Reduced EF. Estimated EF is 30% to 35%. Aortic valve sclerosis without stenosis by Doppler interrogation. Left atrium grossly appears dilated. Mitral valve shows no prolapse. Mild MR. Right-sided chamber is grossly normal. Mild TR. ECHOCARDIOGRAM REPORT [id number] JOSE J FRANKS TRANSINT:[id number] Voice Confirmation ID: [id number] DOCUMENT ID: [id number] ANNEL SENA MD at 2100 CC: [id number] DICTATION DATE: 07/11/20 1635 CROWN BUFFER: 07/11/20 2324 ADM IN [facility] [address] [place] [address]
--- NOTE | 2020-07-12 15:24 | NUR ---
NOTIFIED DR. SHETH REGARDING PATIENTS BP 80/56 (63). STATES WANTS TO AVOID LEVOPHED DUE TO RENAL VASOCONSTRICTION IT CAUSES AND TO RESTART DOBUTAMINE AT 5 MCG/KG/MIN AND TO INCREASE TO 10 MCG/KG/MIN IF NEEDED.
[2020-07-13] VITALS (20 sets, daily range): BP systolic 95–130; BP diastolic 50–93
[2020-07-13 05:16] LABS: BASOPHILS 0.2 % (0-2); EOSINOPHILS 3.3 % (0-7); HEMATOCRIT 38.8 % (42.0-54.0); HEMOGLOBIN 12.2 g/dL (13.5-17.5); IMMATURE GRANULOCYTES 0.2 % (0-5); LYMPHOCYTE ABS# 1.01 10x3/uL (1.32-3.57); LYMPHOCYTES 17.4 % (15-50); MCH 30.8 pg (26.0-34.0); MCHC 31.4 g/dL (31.0-37.0); MEAN PLATELET VOLUME 10.8 fL (7.4-10.4); MONOCYTES 16.6 % (2-11); NEUTROPHIL ABS# 3.61 10x3/uL (1.78-5.38); NEUTROPHILS 62.3 % (40-80); PLATELET COUNT 94 10x3/uL (130-400); RBC 3.96 10x6/uL (4.20-6.10); RDW 15.9 % (11.5-14.5); WBC 5.8 10x3/uL (4.8-10.8)
[2020-07-13 05:33] LABS: ANION GAP 9.3 mmol/L (8-16); CALCIUM 8.9 mg/dL (8.5-10.1); CREATININE - SERUM 2.5 mg/dL (0.6-1.3); PHOSPHOROUS 3.5 mg/dL (2.5-4.9)
[2020-07-13 05:42] LABS: POTASSIUM - SERUM 4.3 mmol/L (3.5-5.1)
--- NOTE | 2020-07-13 06:52 | NUR ---
Pt resting in bed and watching TV, no distress noted. Assessment per flow sheet. Pt has been up to use the bathroom several times, no distress noted, call light in reach, bed in low position.
--- NOTE | 2020-07-13 15:51 | NUR ---
RFA PIV LEAKING AROUND SITE,22G RESITED TO ANOTHER AREA OF RFA X1 ATTEMPT
[2020-07-14] VITALS (17 sets, daily range): BP systolic 97–130; BP diastolic 56–81
[2020-07-14 04:44] LABS: BASOPHILS 0.2 % (0-2); EOSINOPHILS 3.3 % (0-7); HEMATOCRIT 39.9 % (42.0-54.0); HEMOGLOBIN 12.7 g/dL (13.5-17.5); IMMATURE GRANULOCYTES 0.2 % (0-5); LYMPHOCYTE ABS# 0.94 10x3/uL (1.32-3.57); LYMPHOCYTES 14.2 % (15-50); MCH 31.2 pg (26.0-34.0); MCHC 31.8 g/dL (31.0-37.0); MEAN PLATELET VOLUME 10.9 fL (7.4-10.4); MONOCYTES 15.5 % (2-11); NEUTROPHIL ABS# 4.42 10x3/uL (1.78-5.38); NEUTROPHILS 66.6 % (40-80); PLATELET COUNT 98 10x3/uL (130-400); RBC 4.07 10x6/uL (4.20-6.10); RDW 16.2 % (11.5-14.5); WBC 6.6 10x3/uL (4.8-10.8)
[2020-07-14 04:53] LABS: ANION GAP 10.1 mmol/L (8-16); CALCIUM 8.7 mg/dL (8.5-10.1); CARBON DIOXIDE 31.1 mmol/L (21.0-32.0); CREATININE - SERUM 1.9 mg/dL (0.6-1.3); PHOSPHOROUS 2.7 mg/dL (2.5-4.9); POTASSIUM - SERUM 4.2 mmol/L (3.5-5.1); URIC ACID 9.3 mg/dL (2.6-7.2)
--- NOTE | 2020-07-14 08:21 | NUR ---
0700 PT ASSISTED TO BATHROOM THEN BACK TO CHAIR, VOIDED, DENIES ALL NEEDS 0800 BREAKFAST TRAY SERVED
--- NOTE | 2020-07-14 09:42 | NUR ---
CALLED TO PTS ROOM, PT STATED LFA PIV "JUST CAME OUT" THOUGH TEGADERM WAS STILL INTACT, GAUZE DRESSING APPLIED, GOWN CHANGED, DISCUSSED WITH PT TO BE MINDFUL OF WHERE HIS IV SITE IS INFUSING BEFORE REPOSITIONING SELF
--- NOTE | 2020-07-14 11:00 | NUR ---
PT SITTING UP IN CHAIR, VSS. WATCHING TV. NO CHANGES FROM PREV ASSESSMENT. PT DENIES PAIN OR NEEDS. ALARMS ON AND C/L IN REACH.
--- NOTE | 2020-07-14 12:45 | NUR ---
PT ATE ALL OF LUNCH. VSS. PT ASSITED UP TO VOID IN BSC, 100CC CLEAR, COSME URINE. PT WASHED HANDS. BACK UP IN CHAIR. ALARMS ON AND C/L IN REACH.
--- NOTE | 2020-07-14 14:10 | NUR ---
DR. LOPEZ IN TO SEE PT, NEW ORDER REC'D.
--- NOTE | 2020-07-14 14:20 | NUR ---
REPORT CALLED TO NURSE ON MED 2. WILL TRANSFER PT VIA TO RM 2113.
--- NOTE | 2020-07-14 15:19 | NUR ---
RECEIVED TO UNIT VIA W/C FROM CVICU IN STABLE CONDITION, ORIENTED TO UNIT, ORIENTED TO ROOM, ORIENTED TO UNIT ROUTINE, CURRENTLY LYING IN BED AWAKE/ALERT/ORIENTED, T/R SELF AD ABHINAV, CONT OF B/B WITH BRPs PER SELF AD ABHINAV, DENIES PAIN/OTHER DISCOMFORT AT THIS TIME, CALL LIGHT/PHONE/WATER WITHIN REACH, NO S/S OF ACUTE DISTRESS OBSERVED.
--- NOTE | 2020-07-14 19:30 | NUR ---
PT IN BED, AAO X 3, RESP EVEN AND UNLABORED, NO DISTRESS NOTED, CL IN REACH, SR UP X 2.
--- NOTE | 2020-07-15 01:38 | NUR ---
I have reviewed this patient and I concur with the Shift Assessment completed by the Licensed Practical Nurse today this shift.
[2020-07-15 05:33] LABS: BASOPHILS 0.2 % (0-2); EOSINOPHILS 3.7 % (0-7); HEMATOCRIT 38.1 % (42.0-54.0); IMMATURE GRANULOCYTES 0.2 % (0-5); LYMPHOCYTE ABS# 0.83 10x3/uL (1.32-3.57); LYMPHOCYTES 13.8 % (15-50); MCH 30.6 pg (26.0-34.0); MCHC 31.5 g/dL (31.0-37.0); MCV 97.2 fL (80.0-100.0); MEAN PLATELET VOLUME 10.3 fL (7.4-10.4); MONOCYTES 15.6 % (2-11); NEUTROPHIL ABS# 4.01 10x3/uL (1.78-5.38); NEUTROPHILS 66.5 % (40-80); PLATELET COUNT 97 10x3/uL (130-400); RBC 3.92 10x6/uL (4.20-6.10); RDW 16.3 % (11.5-14.5)
[2020-07-15 05:52] VITALS: BP 118/78
[2020-07-15 06:00] LABS: CALCIUM 8.8 mg/dL (8.5-10.1); CARBON DIOXIDE 30.8 mmol/L (21.0-32.0); CREATININE - SERUM 1.5 mg/dL (0.6-1.3); PHOSPHOROUS 2.5 mg/dL (2.5-4.9); POTASSIUM - SERUM 3.8 mmol/L (3.5-5.1)
[2020-07-15 07:33] LABS: PLATELET ESTIMATE NORMAL
[2020-07-15 07:54] VITALS: BP 109/61
--- NOTE | 2020-07-15 10:54 | MORECARE ---
CASE MANAGEMENT DISCHARGE SUMMARY PATIENT: JOSE J TSE UNIT: [id number] ADM DATE: 07/10/20 AGE: 60 : 62 SEX: M ROOM/BED: D.2113 AUTHOR: JO ANN VELÁSQUEZ PHYSICIAN: REFERRING PHYSICIAN: TIFFANIE LEAL MD DATE OF SERVICE: 07/15/20 Discharge Plan Patient Name: JOSE J TSE [facility] [facility] 1960 Planned Disposition: Home Anticipated Discharge Date: Discharge Date: Expected LOS: Initial Reviewer: [email or web address] Initial Review Date: 07/15/2020 Generated: 07/15/20 11:53 am DCPIA - Discharge Planning Initial Assessment Updated by [email or web address]: Machelle Turner on 07/15/20 10:52 am * Is the patient Alert and Oriented? Yes * How many steps to enter\\exit or inside your home? 0/0 * PCP Dr. Arnaud Banda * Pharmacy [facility] * Preadmission Environment Home with Family * ADLs Independent * Equipment Other * Other Equipment Blood pressure and "heart monitor" * List name and contact numbers for known caregivers / representatives who currently or will assist patient after discharge: Cyndi Tse - spouse - [phone] * Verbal permission to speak to the caregivers and representatives has been obtained from the patient. Yes * Community resources currently utilized None * Additional services required to return to the preadmission environment? No * Can the patient safely return to the preadmission environment? Yes * Has this patient been hospitalized within the prior 30 days at any hospital? No Patient Name: JOSE J TSE Page [phone] at 1054 All edits/amendments must be made on the electronic document DICTATION DATE: 07/15/20 105 VIRTUALIZATION ARCHITECT: GIUSEPPE 07/15/20 1054 RPT#: [id number] DC DATE: STATUS: ADM IN [facility] [address] [place] [address] END OF REPORT
--- NOTE | 2020-07-15 11:02 | MORECARE ---
CASE MANAGEMENT DISCHARGE SUMMARY PATIENT: JOSE J TSE UNIT: [id number] ADM DATE: 07/10/20 AGE: 60 : 62 SEX: M ROOM/BED: D.2113 AUTHOR: DIDIER,DOC PHYSICIAN: REFERRING PHYSICIAN: TIFFANIE LEAL MD DATE OF SERVICE: 07/15/20 Discharge Plan Patient Name: JOSE J TSE Facility: [facility]:[place] : 1960 Planned Disposition: Home Anticipated Discharge Date: Discharge Date: Expected LOS: Initial Reviewer: [id number] Initial Review Date: 07/15/2020 Generated: 07/15/20 12:01 pm Comments DCP- Discharge Planning Updated by [email or web address]: Machelle Turner on 07/15/20 9:[address] Patient Name: JOSE J TSE Admission Status: ER Accout number: [id number] Admission Date: 07-10-2020 : 1960 Admission Diagnosis:ACUTE KIDNEY FAILURE, UNSPECIFIED Attending: TIFFANIE LEAL Current LOS: 5 Anticipated DC Date: Planned Disposition: Home Primary Insurance: [facility] MEDICARE SOLUTIONS Discharge Planning Comments: CM met with patient to complete initial dc planning assessment. CM educated patient on the CM role and verbal consent given by patient to complete assessment. CM verified patient's address, phone number, and emergency contact phone numbers. Patient lives at home with his spouse. At discharge patient plans to return and feels this is a safe discharge. CM discussed availability of home health, rehab services, and medical equipment. Patient denied known discharge needs at this time. Transportation provider at discharge will be his . He states his is a nurse and can take care of him. IMM explained, signed, given, copy placed in MR. CM will continue to follow and will assist as needed with dc plans/needs. Stereotype Molder: Machelle Turner DCPIA - Discharge Planning Initial Assessment Updated by [id number]: Machelle Turner on 07/15/20 10:52 am * Is the patient Alert and Oriented? Yes * How many steps to enter\\exit or inside your home? 0/0 * PCP Dr. Arnaud Banda * Pharmacy [facility] on [place] * Preadmission Environment Home with Family * ADLs Independent * Equipment Other * Other Equipment Blood pressure and "heart monitor" * List name and contact numbers for known caregivers / representatives who currently or will assist patient after discharge: Cyndi Tse - spouse - [phone] * Verbal permission to speak to the caregivers and representatives has been obtained from the patient. Yes * Community resources currently utilized None * Additional services required to return to the preadmission environment? No * Can the patient safely return to the preadmission environment? Yes * Has this patient been hospitalized within the prior 30 days at any hospital? No Coverage Notice Reviewer: [email or web address] Simin Turner Notice Issued Date-Time: 07/15/2020 10:55 Notice Type: IM Discharge Notice Notice Delivered To: Patient Relationship to Patient: Self Major Donor Coordinator Name: Delivery Method: HAND - Hand Delivered Mirna Days: Prior Verbal Notification: Recipient Understood Notice: Yes Recipient Signature: Yes Med Rec Note Co-signed by Attending: Coverage Notice Comment: IMM explained, signed, given, copy placed in MR Last DP export: 07/15/20 9:54 a Patient Name: JOSE J TSE Page [id number] at 1102 All edits/amendments must be made on the electronic document DICTATION DATE: 07/15/20 1101 DEVELOPMENT ARCHITECT: GIUSEPPE 07/15/20 1101 RPT#: [id number] DC DATE: STATUS: ADM IN [facility] [address] [place] [address] END OF REPORT
[2020-07-15] MEDS ORDERED: MIDODRINE HCL5 MG PO (11:04)
[2020-07-15] MEDS ORDERED: BUMEX2 MG PO (11:05)
--- NOTE | 2020-07-15 11:36 | NUR ---
PATIENT TO COMPLAIN OF FREQUENCY OF URINATION. SCROTUM AND PENIS SEEN WITH MARKED EDEMA. BLADDER SCAN SEEN WITH RESIDUAL OF 931. JOSH MICHELE APN PAGED FOR RANGEL CATH PLACEMENT. NEW ORDERS RECEIVED.
[2020-07-15 12:00] VITALS: BP 122/74
--- NOTE | 2020-07-15 12:22 | NUR ---
Nutrition Follow-up: Eating well. Ate 100% of breakfast this AM. Noted plans to d/c. Diet: Renal Wt: 196# (07/15) Labs noted: K+ 3.8, BUN 36, Cre 1.5, GFR 51, PO4 2.5 Meds noted: Long Rivera may consider liberalization to cardiac diet (K+ & PO4 wnl). -RD will follow up within 5-7 days.
--- NOTE | 2020-07-15 12:44 | MORECARE ---
CASE MANAGEMENT DISCHARGE SUMMARY PATIENT: JOSE J TSE UNIT: [id number] ADM DATE: 07/10/20 AGE: 60 : 62 SEX: M ROOM/BED: D.2113 AUTHOR: DIDIER,DOC PHYSICIAN: REFERRING PHYSICIAN: TIFFANIE LEAL MD DATE OF SERVICE: 07/15/20 Discharge Plan Patient Name: JOSE J TSE Facility: [facility]:[place] : 1960 Planned Disposition: Home Anticipated Discharge Date: Discharge Date: Expected LOS: Initial Reviewer: [email or web address] Initial Review Date: 07/15/2020 Generated: 07/15/20 1:43 pm Comments DCP- Discharge Planning Updated by [id number]: Machelle Turner on 07/15/20 9:[address] Patient Name: JOSE J TSE Admission Status: ER Accout number: [id number] Admission Date: 07-10-2020 : 1960 Admission Diagnosis:ACUTE KIDNEY FAILURE, UNSPECIFIED Attending: TIFFANIE LEAL Current LOS: 5 Anticipated DC Date: Planned Disposition: Home Primary Insurance: [facility] MEDICARE SOLUTIONS Discharge Planning Comments: CM met with patient to complete initial dc planning assessment. CM educated patient on the CM role and verbal consent given by patient to complete assessment. CM verified patient's address, phone number, and emergency contact phone numbers. Patient lives at home with his spouse. At discharge patient plans to return and feels this is a safe discharge. CM discussed availability of home health, rehab services, and medical equipment. Patient denied known discharge needs at this time. Transportation provider at discharge will be his . He states his is a nurse and can take care of him. IMM explained, signed, given, copy placed in MR. CM will continue to follow and will assist as needed with dc plans/needs. Machine Assembler: Machelle Turner DCPIA - Discharge Planning Initial Assessment Updated by [email or web address]: Machelle Turner on 07/15/20 10:52 am * Is the patient Alert and Oriented? Yes * How many steps to enter\\exit or inside your home? 0/0 * PCP Dr. Arnaud Banda * Pharmacy [facility] on [address] [place] * Preadmission Environment Home with Family * ADLs Independent * Equipment Other * Other Equipment Blood pressure and "heart monitor" * List name and contact numbers for known caregivers / representatives who currently or will assist patient after discharge: Cyndi Tse - spouse - [phone] * Verbal permission to speak to the caregivers and representatives has been obtained from the patient. Yes * Community resources currently utilized None * Additional services required to return to the preadmission environment? No * Can the patient safely return to the preadmission environment? Yes * Has this patient been hospitalized within the prior 30 days at any hospital? No External Providers External Provider: [facility] Next Contact Date: Service Request Date: Service Type: Resolution: Reviewer: Comments: Coverage Notice Reviewer: [id number] - Machelle Turner Notice Issued Date-Time: 07/15/2020 10:55 Notice Type: IM Discharge Notice Notice Delivered To: Patient Relationship to Patient: Self Dice Manager Name: Delivery Method: HAND - Hand Delivered Mirna Days: Prior Verbal Notification: Recipient Understood Notice: Yes Recipient Signature: Yes Med Rec Note Co-signed by Attending: Coverage Notice Comment: IMM explained, signed, given, copy placed in MR Last DP export: 07/15/20 10:02 a Patient Name: JOSE J TSE Page [phone] at 1244 All edits/amendments must be made on the electronic document DICTATION DATE: 07/15/20 1244 NONFARM ANIMAL CARETAKER: GIUSEPPE 07/15/20 1244 RPT#: [id number] DC DATE: STATUS: ADM IN [facility] [address] [place] [address] END OF REPORT
--- NOTE | 2020-07-15 12:51 | MORECARE ---
CASE MANAGEMENT DISCHARGE SUMMARY PATIENT: JOSE J TSE UNIT: [id number] ADM DATE: 07/10/20 AGE: 60 : 62 SEX: M ROOM/BED: D.2113 AUTHOR: DIDIERDOC PHYSICIAN: REFERRING PHYSICIAN: TIFFANIE LEAL MD DATE OF SERVICE: 07/15/20 Discharge Plan Patient Name: JOSE J TSE Facility: [facility]:[place] : 1960 Planned Disposition: Home Anticipated Discharge Date: Discharge Date: Expected LOS: Initial Reviewer: [email or web address] Initial Review Date: 07/15/2020 Generated: 07/15/20 1:50 pm Comments DCP- Discharge Planning Updated by [email or web address]: Machelle Turner on 07/15/20 11:[address] Received a call from patient's that she would like him to have home health. His PCP will be changed to Dr. Lemons. [facility] for [place] or any that will accept his insurance. I called and spoke with Princess at [facility] and clinical faxed. Princess states they will see on Saturday or before. DCP- Discharge Planning Updated by [id number]: Machelle Turner on 07/15/20 9:[address] Patient Name: JOSE J TSE Admission Status: ER Accout number: [id number] Admission Date: 07-10-2020 : 1960 Admission Diagnosis:ACUTE KIDNEY FAILURE, UNSPECIFIED Attending: TIFFANIE LEAL Current LOS: 5 Anticipated DC Date: Planned Disposition: Home Primary Insurance: [facility] MEDICARE SOLUTIONS Discharge Planning Comments: CM met with patient to complete initial dc planning assessment. CM educated patient on the CM role and verbal consent given by patient to complete assessment. CM verified patient's address, phone number, and emergency contact phone numbers. Patient lives at home with his spouse. At discharge patient plans to return and feels this is a safe discharge. CM discussed availability of home health, rehab services, and medical equipment. Patient denied known discharge needs at this time. Transportation provider at discharge will be his . He states his is a nurse and can take care of him. IMM explained, signed, given, copy placed in MR. CM will continue to follow and will assist as needed with dc plans/needs. Federal Agent: Machelle Turner DCPIA - Discharge Planning Initial Assessment Updated by [id number]: Machelle Turner on 07/15/20 10:52 am * Is the patient Alert and Oriented? Yes * How many steps to enter\\exit or inside your home? 0/0 * PCP Dr. Arnaud Banda * Pharmacy [facility] on [place] * Preadmission Environment Home with Family * ADLs Independent * Equipment Other * Other Equipment Blood pressure and "heart monitor" * List name and contact numbers for known caregivers / representatives who currently or will assist patient after discharge: Cyndi Tse - [facility] - [phone] * Verbal permission to speak to the caregivers and representatives has been obtained from the patient. Yes * Community resources currently utilized None * Additional services required to return to the preadmission environment? No * Can the patient safely return to the preadmission environment? Yes * Has this patient been hospitalized within the prior 30 days at any hospital? No Coverage Notice Reviewer: [id number] - Machelle Turner Notice Issued Date-Time: 07/15/2020 10:55 Notice Type: IM Discharge Notice Notice Delivered To: Patient Relationship to Patient: Self Sap Sd Analyst Name: Delivery Method: HAND - Hand Delivered Mirna Days: Prior Verbal Notification: Recipient Understood Notice: Yes Recipient Signature: Yes Med Rec Note Co-signed by Attending: Coverage Notice Comment: IMM explained, signed, given, copy placed in MR Last DP export: 07/15/20 11:44 a Patient Name: JOSE J TSE Page [id number] at 1251 All edits/amendments must be made on the electronic document DICTATION DATE: 07/15/20 1251 INTERVENTION TEACHER: GIUSEPPE 07/15/20 1251 RPT#: [id number] DC DATE: STATUS: ADM IN [facility] [address] [place] [address] END OF REPORT
--- NOTE | 2020-07-18 07:33 | MORECARE ---
CASE MANAGEMENT DISCHARGE SUMMARY PATIENT: JOSE J TSE UNIT: [id number] ADM DATE: 07/10/20 AGE: 60 : 62 SEX: M ROOM/BED: D.2113 AUTHOR: DIDIER,DOC PHYSICIAN: REFERRING PHYSICIAN: TIFFANIE LEAL MD DATE OF SERVICE: 07/18/20 Discharge Plan Patient Name: JOSE J TSE Facility: [facility]:[place] : 1960 Planned Disposition: Home Anticipated Discharge Date: Discharge Date: 07/15/2020 Expected LOS: Initial Reviewer: [email or web address] Initial Review Date: 07/15/2020 Generated: 07/18/20 8:33 am Comments DCP- Discharge Planning Updated by [email or web address]: Machelle Spearsliz on 07/15/20 11:[address] Received a call from patient's that she would like him to have home health. His PCP will be changed to Dr. Lemons. [facility] for [place] or any that will accept his insurance. I called and spoke with Princess at [facility] and clinical faxed. Princess states they will see on Saturday or before. DCP- Discharge Planning Updated by [email or web address]: Machelle Turner on 07/15/20 9:[address] Patient Name: JOSE J TSE Admission Status: ER Accout number: [id number] Admission Date: 07-10-2020 : 1960 Admission Diagnosis:ACUTE KIDNEY FAILURE, UNSPECIFIED Attending: TIFFANIE LEAL Current LOS: 5 Anticipated DC Date: Planned Disposition: Home Primary Insurance: [facility] MEDICARE SOLUTIONS Discharge Planning Comments: CM met with patient to complete initial dc planning assessment. CM educated patient on the CM role and verbal consent given by patient to complete assessment. CM verified patient's address, phone number, and emergency contact phone numbers. Patient lives at home with his spouse. At discharge patient plans to return and feels this is a safe discharge. CM discussed availability of home health, rehab services, and medical equipment. Patient denied known discharge needs at this time. Transportation provider at discharge will be his . He states his is a nurse and can take care of him. IMM explained, signed, given, copy placed in MR. CM will continue to follow and will assist as needed with dc plans/needs. Rn Building: Machelle Turner DCPIA - Discharge Planning Initial Assessment Updated by [email or web address]: Machelle Turner on 07/15/20 10:52 am * Is the patient Alert and Oriented? Yes * How many steps to enter\\exit or inside your home? 0/0 * PCP Dr. Arnaud Banda * Pharmacy [facility] on [place] * Preadmission Environment Home with Family * ADLs Independent * Equipment Other * Other Equipment Blood pressure and "heart monitor" * List name and contact numbers for known caregivers / representatives who currently or will assist patient after discharge: Cyndi Tse - spouse - [phone] * Verbal permission to speak to the caregivers and representatives has been obtained from the patient. Yes * Community resources currently utilized None * Additional services required to return to the preadmission environment? No * Can the patient safely return to the preadmission environment? Yes * Has this patient been hospitalized within the prior 30 days at any hospital? No Coverage Notice Reviewer: [id number] - Machelle Turner Notice Issued Date-Time: 07/15/2020 10:55 Notice Type: IM Discharge Notice Notice Delivered To: Patient Relationship to Patient: Self Amphibian Crewmember Name: Delivery Method: HAND - Hand Delivered Mirna Days: Prior Verbal Notification: Recipient Understood Notice: Yes Recipient Signature: Yes Med Rec Note Co-signed by Attending: Coverage Notice Comment: IMM explained, signed, given, copy placed in MR Last DP export: 07/15/20 11:51 a Patient Name: JOSE J TSE Page [id number] at 0733 All edits/amendments must be made on the electronic document DICTATION DATE: 07/18/2033 REFERENCE AND INSTRUCTION LIBRARIAN: GIUSEPPE 07/18/2033 RPT#: [id number] DC DATE:07/15/20 STATUS: DIS IN [facility] [address] [place] [address] END OF REPORT
== END 2020-07-15 14:57 | disposition home health service (06) | DRG 682 ==
LOC: D.ER 12:08 → D.ICU 14:15 → D.CVICU 14:15 → D.M2 07-14 14:30
PROVIDERS: Family Medicine; Internal Medicine Nephrology; ADMIT Emergency Medicine; ATTEND Emergency Medicine
DX: N17.9 Acute kidney failure, unspecified (principal); I50.23 Acute on chronic systolic (congestive) heart failure; I13.0 Hypertensive heart and chronic kidney disease with heart failure and stage 1 through stage 4 chronic kidney disease, or unspecified chronic kidney disease; R18.8 Other ascites; N30.00 Acute cystitis without hematuria; J98.11 Atelectasis; J90 Pleural effusion, not elsewhere classified; E87.5 Hyperkalemia; K80.20 Calculus of gallbladder without cholecystitis without obstruction; E83.41 Hypermagnesemia; R74.01 Elevation of levels of liver transaminase levels; I95.9 Hypotension, unspecified; N18.9 Chronic kidney disease, unspecified; E78.5 Hyperlipidemia, unspecified; R60.1 Generalized edema

== ENCOUNTER 2020-07-17 10:11 | Emergency (ER) | payer MEDICARE ==
[~2020-07-17] VITALS: Ht 170.2 cm; Wt 90.9 kg
[~2020-07-17 10:11] MED LIST changes: +BUMEX2 MG PO; +ENTRESTO 24 MG1 EACH PO; +MIDODRINE HCL5 MG PO
[2020-07-17 10:15] VITALS: Ht 170.2 cm; Wt 90.9 kg
[2020-07-17 10:21] LABS: BASOPHILS 0.2 % (0-2); EOSINOPHILS 2.6 % (0-7); HEMATOCRIT 36.4 % (42.0-54.0); HEMOGLOBIN 11.9 g/dL (13.5-17.5); IMMATURE GRANULOCYTES 0.2 % (0-5); LYMPHOCYTE ABS# 0.88 10x3/uL (1.32-3.57); LYMPHOCYTES 14.4 % (15-50); MCH 31.4 pg (26.0-34.0); MCHC 32.7 g/dL (31.0-37.0); MEAN PLATELET VOLUME 10.3 fL (7.4-10.4); MONOCYTES 13.1 % (2-11); NEUTROPHIL ABS# 4.24 10x3/uL (1.78-5.38); NEUTROPHILS 69.5 % (40-80); PLATELET COUNT 100 10x3/uL (130-400); RBC 3.79 10x6/uL (4.20-6.10); RDW 16.5 % (11.5-14.5); WBC 6.1 10x3/uL (4.8-10.8)
[2020-07-17 10:29] LABS: ANION GAP 6.5 mmol/L (8-16); APTT 27.8 SECONDS (22.8-39.4); CALCIUM 8.8 mg/dL (8.5-10.1); CARBON DIOXIDE 31.5 mmol/L (21.0-32.0); CREATININE - SERUM 1.4 mg/dL (0.6-1.3); INR 1.16 (0.85-1.17); PROTIME 13.7 SECONDS (11.6-15.0)
[2020-07-17 10:37] LABS: ALBUMIN 3.2 g/dL (3.4-5.0); BILIRUBIN - TOTAL 2.04 mg/dL (0.2-1.3); PROTEIN - SERUM 6.8 g/dL (6.4-8.2)
[2020-07-17 10:39] LABS: AMYLASE - SERUM 56 U/L (25-115); LIPASE 241 U/L (73-393)
[2020-07-17 11:01] LABS: BILIRUBIN NEGATIVE (NEGATIVE); KETONE NEGATIVE (NEGATIVE); NITRITE NEGATIVE (NEGATIVE)
[2020-07-17 11:02] LABS: WHITE CELLS - URINE 0-5 HPF (0-1)
[2020-07-17 11:03] LABS: BACTERIA FEW HPF (NONE SEEN)
[2020-07-17] MEDS ORDERED: CEPHALEXIN500 M1 PO (11:58)
[2020-07-17] MEDS ORDERED: MIRALAX17 GM PO (11:58)
[2020-07-17] MEDS ORDERED: MACROBID100 MG PO (11:58)
[2020-07-17 13:33] VITALS: BP 119/747
== END 2020-07-17 13:36 | disposition home or self-care (01) ==
LOC: D.ER 10:11
PROVIDERS: Family Medicine
DX: N39.0 Urinary tract infection, site not specified (principal); T83.518A Infection and inflammatory reaction due to other urinary catheter, initial encounter; R10.9 Unspecified abdominal pain; K59.00 Constipation, unspecified; N47.2 Paraphimosis; I11.0 Hypertensive heart disease with heart failure; I50.9 Heart failure, unspecified; R31.9 Hematuria, unspecified